=== PATIENT | male | born 1965 | race Caucasian/White ===

== ENCOUNTER 2017-12-05 12:00 | Emergency (ER) | payer OTHER ==
[2017-12-05] MEDS: DIPHTH/TET/ACEL PERTUSS (ADULT) 0.5 ML VIAL IM (15:40)
[2017-12-05] MEDS: LIDOCAINE 1% (MDV) 20 ML INJ SC (15:40)
[2017-12-05] MEDS: ACETAMINOPHEN 325 MG TAB PO (16:41)
[2017-12-05] MEDS: NICARDipine HCL 30 MG CAPSULE PO (16:42)
== END 2017-12-05 17:16 | disposition home or self-care (01) ==
LOC: FTE 12:00
DX: S01.01XA Laceration without foreign body of scalp, initial encounter (principal); R03.0 Elevated blood-pressure reading, without diagnosis of hypertension; W22.8XXA Striking against or struck by other objects, initial encounter; Y92.89 Other specified places as the place of occurrence of the external cause; Z23 Encounter for immunization
CPT/HCPCS: 12002; 70450; 90471; 90715; 99284-25

== ENCOUNTER 2017-12-07 09:16 | Emergency (ER) | payer OTHER | END 2017-12-07 11:00 | disposition home or self-care (01) | LOC: E/R 09:16 | DX: Z48.01 Encounter for change or removal of surgical wound dressing (principal) | CPT/HCPCS: 99281 ==

== ENCOUNTER 2018-10-22 09:21 | Emergency (ER) | payer BC, OTHER | END 2018-10-22 12:37 | disposition home or self-care (01) | LOC: FTE 09:21 | DX: M79.602 Pain in left arm (principal); M50.322 Other cervical disc degeneration at C5-C6 level; I10 Essential (primary) hypertension | CPT/HCPCS: 72040; 93971; 99284-25 ==